=== PATIENT | male | born 1975 | race Two or more races ===

== ENCOUNTER 2017-03-27 05:46 | Emergency (ER) | payer SELFPAY ==
[2017-03-27] MEDS ORDERED: Ondansetron INJ* 2 MG/ML VIAL ONE (06:20)
[2017-03-27] MEDS ORDERED: Ketorolac INJ* 30 MG/ML 1 ML VIAL IV ONE (06:20)
[2017-03-27] MEDS ORDERED: Ondansetron INJ* 2 MG/ML VIAL IV ONE (06:20)
[2017-03-27] MEDS ORDERED: Ketorolac INJ* 30 MG/ML 1 ML VIAL ONE (06:21)
[2017-03-27] MEDS ORDERED: Morphine INJ* 4 MG/ML 1 ML CARPUJECT IV ONE ×2 (06:23→08:04)
[2017-03-27] MEDS: NS 0.9% 1000 ML* 2,000 ML IV ONE (06:31)
[2017-03-27 06:45] LABS: Hematocrit 43 % (42-52); Hemoglobin 14.6 g/dl (14.0-18.0); Mean Corpuscular HGB Conc 34 g/dl (31-36); Mean Corpuscular Hemoglobin 30 pg (27-31); Mean Corpuscular Volume 89 fL (80-94); Mean Platelet Volume 9 um3 (7.4-10.4); Red Blood Count 4.85 10^6/ul (4.0-5.4); Red Cell Distribution Width 13 % (10.5-15); White Blood Count 10.9 10^3/ul (3.5-10.8)
[2017-03-27 07:02] LABS: Albumin 5.3 g/dL (3.2-5.2); BUN/Creatinine Ratio 21.6 (8-20); Calcium 9.7 mg/dL (8.6-10.3); EGFR African American 93.4 (>60); EGFR Non-African American 72.6 (>60); Globulin 1.6 g/dL (2-4); Potassium 3.5 mmol/L (3.5-5.0); Total Protein 6.9 g/dL (6.4-8.9)
[2017-03-27 07:03] LABS: Total Bilirubin 0.9 mg/dL (0.2-1.0)
--- NOTE | 2017-03-27 07:55 | RAD ---
HISTORY: Headache, vomiting, light sensitivity COMPARISONS: None TECHNIQUE: Multiple contiguous axial CT scans were obtained of the head without intravenous contrast. FINDINGS: HEMORRHAGE/INFARCT: There is no hemorrhage or acute infarct. MASSES/SHIFT: There is no mass or shift. EXTRA-AXIAL SPACES: There are no extra-axial fluid collections. SULCI AND VENTRICLES: The sulci and ventricles are normal in size and position for the patient's stated age. CEREBRUM: There are no focal parenchymal abnormalities. BRAINSTEM: There are no focal parenchymal abnormalities. CEREBELLUM: There are no focal parenchymal abnormalities. VESSELS: The vessels are grossly normal. PARANASAL SINUSES: The paranasal sinuses are clear. ORBITS: The orbits are unremarkable. BONES AND SOFT TISSUE: No bone or soft tissue abnormalities are noted. OTHER: None IMPRESSION: NO ACUTE INTRACRANIAL PATHOLOGY.
[2017-03-27] MEDS ORDERED: diPHENhydraMINE IV* 50 MG/ML 1 ml VIAL (BENADRYL) IV ONE (08:04)
[2017-03-27] MEDS ORDERED: Metoclopramide IV* 5 MG/ML 2 ML VIAL IV ONE (08:04)
[2017-03-27 11:33] VITALS: BP 100/54
--- NOTE | 2017-03-27 18:40 | ED ---
Froylan Lezama SooYoung, scribed for Yrn Sena MD on 03/27/17 at 0702 . Headache - HPI Summary HPI Summary: A 42 y/o M presents to ED with sudden-onset of severe MCHUGH onset 0300, which aroused pt from sleep. MCHUGH is located at front of L-side. He took Tylenol to no relief. Associated sx: n/v, photophobia, neck pain. Pt states that he worked out last night, shoulder routine, which he thinks may be the cause for his neck strain. Pert PMHx: MCHUGH, migraines but never as intense as today, and typically sx resolve with Tylenol. - History Of Current Complaint Chief Complaint: EDHeadache Stated Complaint: NAUSEA/VOMITING/HEADACHE Hx Obtained From: Patient Onset/Duration: Sudden Onset, Started hours ago, Still Present Initially Headache Was: "Worst Headache Ever" Currently Pain Is: Current Pain Scale(0-10)= - 9 Timing: Constant Location of Headache: Frontal - L-sided Associated Signs And Symptoms: Nausea, Vomiting, Neck Pain, Other (Noted In Comments) - photophobia - Allergies/Home Medications Allergies/Adverse Reactions: Allergies Allergy/AdvReac Type Severity Reaction Status Date / Time Erythromycin Allergy GI Upset Verified 03/27/17 05:58 PMH/Surg Hx/FS Hx/Imm Hx Previously Healthy: No Opthamlomology History: Denies: Hx Legally Blind Neurological History: Reports: Hx Headaches, Hx Migraine Infectious Disease History: No Infectious Disease History: Denies: Traveled Outside the [place] in Last 30 Days - Family History Known Family History: Positive: Other - neg: aneurysms Family History: Mom: MS - Social History Occupation: Employed Full-time Lives: With Family Alcohol Use: None Hx Substance Use: No Substance Use Type: Reports: None Hx Tobacco Use: No Smoking Status (MU): Never Smoked Tobacco Review of Systems Positive: Photophobia Positive: Vomiting, Nausea Positive: Other - pos: neck pain Positive: Headache All Other Systems Reviewed And Are Negative: Yes Physical Exam - Summary Physical Exam Summary: Exam limited secondary to his nausea and MCHUGH. The patient is well-nourished and in mild distress. The skin is warm and dry and skin color reflects adequate perfusion. HEENT: The head is normocephalic and atraumatic. The pupils are mid-position, equal and reactive. Pt is photophobic. The conjunctivae are clear and without drainage. Nares are patent and without drainage. Mouth reveals moist mucous membranes and the throat is without erythema and exudate. The external ears are intact. The ear canals are patent and without drainage. The tympanic membranes are intact. Neck is supple with full range of motion and non-tender. There are no carotid bruits. There is no neck vein distension. No nucchal rigidity. Respiratory: Chest is non-tender. Lungs are clear to auscultation and breath sounds are symmetrical and equal. Cardiovascular: Hear is regular rate and rhythm. There is no murmur or rub auscultated. There is no peripheral edema and pulses are symmetrical and equal. Abdomen: The abdomen is soft and non-tender. There are normal bowel sounds heard in all four quadrants and there is no organomegaly palpated. Musculoskeletal: There is no reproducible back pain over T- and L-spine. Extremities are non-tender with full range of motion. There is good capillary refill. There is no peripheral edema or calf tenderness elicited. Neurological: Patient is alert and oriented to person, place and time. The patient has symmetrical motor strength in all four extremities. Cranial nerves are grossly intact. Deep tendon reflexes are symmetrical and equal in all four extremities. Psychiatric: The patient has an appropriate affect and does not exhibit any anxiety or depression. Triage Information Reviewed: Yes Vital Signs On Initial Exam: Initial Vitals Temp Pulse Resp BP Pulse Ox 98.2 F 88 16 134/78 98 03/27/17 06:00 03/27/17 06:00 03/27/17 06:00 03/27/17 06:00 03/27/17 06:00 Vital Signs Reviewed: Yes - Guero Coma Scale Coma Scale Total: 15 Diagnostics - Vital Signs Vital Signs Temp Pulse Resp BP Pulse Ox 03/27/17 06:35 98.9 F 98 20 144/79 99 03/27/17 06:30 20 03/27/17 06:00 98.2 F 88 16 134/78 98 - Laboratory Lab Results: Lab Results 03/27/17 Range/Units 06:26 WBC 10.9 H (3.5-10.8) 10^3/ul RBC 4.85 (4.0-5.4) 10^6/ul Hgb 14.6 (14.0-18.0) g/dl Hct 43 (42-52) % MCV 89 (80-94) fL MCH 30 (27-31) pg MCHC 34 (31-36) g/dl RDW 13 (10.5-15) % Plt Count 164 (150-450) 10^3/ul MPV 9 (7.4-10.4) um3 Neut % (Auto) 80.2 (38-83) % Lymph % (Auto) 13.1 L (25-47) % Sherman % (Auto) 6.3 (1-9) % Eos % (Auto) 0.2 (0-6) % Baso % (Auto) 0.2 (0-2) % Absolute Neuts (auto) 8.8 H (1.5-7.7) 10^3/ul Absolute Lymphs (auto) 1.4 (1.0-4.8) 10^3/ul Absolute Monos (auto) 0.7 (0-0.8) 10^3/ul Absolute Eos (auto) 0 (0-0.6) 10^3/ul Absolute Basos (auto) 0 (0-0.2) 10^3/ul Absolute Nucleated RBC 0 10^3/ul Nucleated RBC % 0 Result Diagrams: 03/27/17 06:26 03/27/17 06:26 Lab Statement: Any lab studies that have been ordered have been reviewed, and results considered in the medical decision making process. - CT HEAD CT CT Interpretation: No Acute Changes - IMPRESSION: Nml exam. ED physician has reviewed this radiology report and agrees. CT Interpretation Completed By: Radiologist Re-Evaluation - Re-Evaluation 1 Re-Evaluation Time: 11:19 Change: Improved Comment: Pt states feeling much better. Discussed dispo. Pt voiced understanding. Headache Course/Dx - Course Course Of Treatment: A 42 y/o M presents to ED with sudden-onset of severe MCHUGH onset 0300, which aroused pt from sleep. MCHUGH is located at front of L-side. He took Tylenol to no relief. Associated sx: n/v, photophobia, neck pain. Pt states that he worked out last night, shoulder routine, which he thinks may be the cause for his neck strain. Pert PMHx: MCHUGH, migraines but never as intense as today, and typically sx resolve with Tylenol. Bloodwork is without significant abnormality. Head CT shows nml exam. Pt given fluids, Benadryl, Reglan, Morphine, Zofran. Upon reeval pt is feeling much. Will dispo home with Zofran. Pt has Oxycodone and Naproxen at home. - Diagnoses Differential Diagnosis/HQI/PQRI: Subarachnoid Hemorrhage Provider Diagnoses: Migraine Discharge - Discharge Plan Condition: Stable Disposition: HOME Prescriptions: Ondansetron ODT TAB* [Zofran 4 MG Odt TAB*] 4 mg PO Q8H PRN #20 tab.odt PRN Reason: Nausea Patient Education Materials: Migraine Headache (ED), Ondansetron (By mouth) Referrals: [facility] [Primary Care Provider] - 3 Days Additional Instructions: Follow up with your primary care provider in 3 days. As we discussed, use naproxen and oxycodone you have at home for pain. Please return to ED if you experience new or worsening symptoms. The documentation as recorded by the Froylan laceky SooYoung accurately reflects the service I personally performed and the decisions made by me, Yrn Sena MD.
== END 2017-03-27 11:46 | disposition home or self-care (01) ==
LOC: ED 05:46
DX: R11.2 Nausea with vomiting, unspecified (principal); M54.2 Cervicalgia; G43.909 Migraine, unspecified, not intractable, without status migrainosus
CPT/HCPCS: 36415; 70450; 80053; 85025; 86618; 96374; 96375; 99283; J1200; J1885; J2270; J2405; J2765

== ENCOUNTER 2017-12-11 11:16 | Emergency (ER) | payer OTHER ==
[2017-12-11 12:30] VITALS: BP 105/67
--- NOTE | 2017-12-11 13:11 | UC ---
UC General HPI - HPI Summary HPI Summary: 42 year old male with history of ED and nephrolithiasis here request refill of his medications. he denies any symptoms. But since he travels a lot, he wanted to have medication with him that has not . He usually does not like to go to the ED whenever he feels like he is passing a stone. He wants refill on Cialis naproxen, flomax and percocet. - History of Current Complaint Chief Complaint: UCMedRefill Stated Complaint: MED REFILL Time Seen by Provider: 12/11/17 12:28 Timing: Constant Pain Intensity: 0 Associated Signs & Symptoms: Negative: Back Pain, Confusion, Dysuria, Edema, Recent Medication Changes, Syncope, Trauma, Vomiting, Wheezing, Weakness - Allergy/Home Medications Allergies/Adverse Reactions: Allergies Allergy/AdvReac Type Severity Reaction Status Date / Time erythromycin base Allergy GI Upset Verified 12/11/17 12:16 Home Medications: Home Medications Acetaminophen [Tylenol] 650 mg PO Q6HR PRN 12/11/17 [History Confirmed 12/11/17] Naproxen [Naprosyn 500 mg tab] 500 mg PO BID PRN 12/11/17 [History Confirmed ] Oxycodone HCl/Acetaminophen [Percocet 5-325 mg Tablet] 1 tab PO Q6HR PRN [History Confirmed 12/11/17] Tadalafil [Cialis] 5 mg PO DAILY PRN 12/11/17 [History Confirmed 12/11/17] Tamsulosin HCl [Flomax] 0.4 mg PO DAILY PRN 12/11/17 [History Confirmed 12/11/17 ] PMH/Surg Hx/FS Hx/Imm Hx Previously Healthy: Yes - Surgical History Surgical History: Yes Surgery Procedure, Year, and Place: kidney stone surgery - Family History Known Family History: Positive: Other - neg: aneurysms Family History: Mom: MS - Social History Alcohol Use: None Substance Use Type: None Smoking Status (MU): Never Smoked Tobacco Review of Systems Constitutional: Negative Skin: Negative Eyes: Negative ENT: Negative Respiratory: Negative Cardiovascular: Negative Gastrointestinal: Negative Genitourinary: Negative Motor: Negative Neurovascular: Negative Musculoskeletal: Negative Neurological: Negative Psychological: Negative All Other Systems Reviewed And Are Negative: Yes Physical Exam Triage Information Reviewed: Yes Vital Signs: Initial Vital Signs Temp 37.4 C 12/11/17 12:25 Pulse 71 12/11/17 12:25 Resp 16 12/11/17 12:25 BP 105/67 12/11/17 12:25 Pulse Ox 95 12/11/17 12:25 Neck exam: Normal Respiratory Exam: Normal Cardiovascular Exam: Normal Abdominal Exam: Normal Abdomen Description: Negative: CVA Tenderness (R), CVA Tenderness (L) Musculoskeletal Exam: Normal Neurological Exam: Normal Psychological Exam: Normal Course/Dx - Differential Dx - Multi-Symptom Differential Diagnoses: Urinary Tract Infection, Other - Nephrolithiasis Provider Diagnoses: Medication refill Discharge - Sign-Out/Discharge Documenting (check all that apply): Discharge/Admit/Transfer - Discharge Plan Condition: Good Disposition: HOME Prescriptions: Naproxen [Naproxen 500 mg tab] 500 mg PO BID PRN #20 PRN Reason: Pain oxyCODONE/Acetamin 5/325 MG* [Percocet 5/325 TAB*] 2 tab PO Q6H PRN #12 tab MDD 3 PRN Reason: Pain - Mild To Moderate Tadalafil [Cialis] 5 mg PO AC PRN #10 tablet PRN Reason: Erectile Dysfunction Tadalafil 5 gm MC powder Tamsulosin CAP* [Flomax CAP*] 0.4 mg PO DAILY #30 cap [facility] - Additional Instructions: Please go to the ED if you have severe pain with fever and blood in the urine. - Billing Disposition and Condition Condition: GOOD Disposition: HOME
== END 2017-12-11 13:30 | disposition home or self-care (01) ==
LOC: UCEAST 11:16
DX: Z87.442 Personal history of urinary calculi (principal); Z76.0 Encounter for issue of repeat prescription; Z88.1 Allergy status to other antibiotic agents
CPT/HCPCS: 99212; G0463